=== PATIENT | male | born 1970 ===

== ENCOUNTER 2024-08-05 16:35 | Outpatient (REF) | payer BC, SELFPAY ==
[2024-08-05 17:10] LABS: HCT 48.7 % (40.0-50.0); HGB 15.9 g/dL (13.5-17.5); MCH 29.6 pg (27.0-33.0); MCHC 32.6 % (32.0-36.0); MCV 91 fL (80-95); MPV 9.8 fL (8.0-11.0); Platelet Count 237 10^3/uL (130-400); RBC 5.37 10^6/uL (4.36-5.78); RDW 12.3 % (11.8-14.1); RDW-SD 40.4 fL; WBC 5.41 10^3/uL (4.4-10.8)
[2024-08-05 17:31] LABS: ALT 60 U/L (16-63); AST 37 U/L (15-37); Albumin 4.1 g/dL (3.4-5.0); Alkaline Phosphatase 66 U/L (46-116); BUN 19 mg/dL (7-18); Bilirubin, Total 0.6 mg/dL (0.2-1.0); CREATININE 1.1 mg/dL (0.70-1.30); Calcium 9.3 mg/dL (8.5-10.1); Calculated LDL 158 mg/dL (<100); Chloride 106 mmol/L (98-107); Cholesterol 236 mg/dL (<200); Estimated GFR 81.28 (mL/min/1.73m2); Glucose 106 mg/dL (74-106); HDL Cholesterol 60 mg/dL (>or=40); Potassium 4.6 mmol/L (3.5-5.1); Sodium 140 mmol/L (136-145); Total Protein 7.9 g/dL (6.4-8.2); Triglyceride 93 mg/dL (<150)
[2024-08-05 17:40] LABS: Hemoglobin A1C 5.9 % (<5.7)
== END 2024-08-05 16:36 | disposition home or self-care (01) ==
LOC: NCHCN 16:35
PROVIDERS: Visit Provider Physician Assistant
DX: Z13.6 Encounter for screening for cardiovascular disorders (principal); Z13.220 Encounter for screening for lipoid disorders; Z13.1 Encounter for screening for diabetes mellitus
CPT/HCPCS: 80053; 80061; 85027; 83036